=== PATIENT | female | born 1945 | race Caucasian/White ===

== ENCOUNTER → 2016-12-30 | Outpatient (CLI) | payer MEDICARE ==
--- NOTE | 2016-12-30 17:41 | PCVCIMAG ---
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, Obesity, Edema 2D Dimensions LVEF(%): 38.94 (>50%) IVSd: 14.32 (7-11mm)LVOT Diam: 20.89 (18-24mm) LVDd: 48.62 mm PWd: 12.19 (7-11mm) LVDs: 39.43 (25-40mm) Left Atrium: 44.06 (27-40mm) Aortic Root: 29.80 mm LV Single Plane 4CH: 50.59 % LV Single Plane 2CH: 47.61 %Ramos's LVEF: 49.10 % Biplane EF: 48.5 % Volumes Left Atrial Volume (Systole) Single Plane 4CH: 68.70 mLSingle Plane 2CH: 70.30 mL LA ESV Index: 34.00 mL/m2 Aortic Valve AoV Peak Lv.: 4.08 m/s LVOT Max P.03 mmHg AO Mean Gr.: 33.14 mmHgLVOT Mean P.14 mmHg AO V2 Mean: 2.65 m/sLVOT Max V: 1.23 m/s AO V2 VTI: 103.59 cmLVOT Mean V: 0.85 m/s SHARONDA (VTI): 1.20 [id number] V1 VTI: 30.14 cm SV (LVOT): 103.28 mL Mitral Valve E/A Ratio: 1.2 MV Decel. Time: 257.99 ms MV E Max Lv.: 1.16 m/s MV A Lv.: 0.96 m/s IVRT: 65.74 ms Pulmonary Valve PV Peak Lv.: 0.98 m/sPV Peak Gr.: 3.86 mmHg Pulmonary Vein P Vein S: 0.24 m/sP Vein A: 0.34 m/s P Vein D: 0.45 m/sP Vein A Dur.: 138.4 msec P Vein S/D Ratio: 0.53 Tricuspid Valve TR Peak Lv.: 2.33 m/s TR Peak Gr.: 21.80 mmHg Left Ventricle The left ventricle is normal size. There is normal LV segmental wall motion. Mild concentric left ventricular hypertrophy. Left ventricular systolic function is normal. LVEF is 50%. Grade II - pseudonormal filling dynamics. Right Ventricle The right ventricle is normal size. The right ventricular systolic function is normal. Atria Left atrium is mildly dilated. The right atrium size is normal. Aortic Valve Moderate aortic valve calcification. 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 Mild aortic regurgitation. There is moderate valvular aortic stenosis. Mitral Valve Mild mitral annular calcification. Mild mitral regurgitation. No evidence of mitral valve stenosis. Tricuspid Valve The tricuspid valve is normal in structure. Trace tricuspid regurgitation with PAP of 29 mmHg. Pulmonic Valve The pulmonary valve is normal in structure. There is no pulmonic valvular regurgitation. Great Vessels The aortic root is normal in size. IVC is normal in size and collapses with >50% inspiration Pericardium There is no pericardial effusion. <Conclusion> The left ventricle is normal size. Mild concentric left ventricular hypertrophy. Left ventricular systolic function is normal. Grade II - pseudonormal filling dynamics. The right ventricle is normal size. Left atrium is mildly dilated. Moderate aortic valve calcification. 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 There is moderate valvular aortic stenosis. Mild mitral regurgitation.
== END | disposition home or self-care (01) ==
LOC: PCVCIMAG 09:46
PROVIDERS: ATTEND Internal Medicine Cardiovascular Disease
DX: I08.3 Combined rheumatic disorders of mitral, aortic and tricuspid valves (principal); I48.91 Unspecified atrial fibrillation; I10 Essential (primary) hypertension; Z95.4 Presence of other heart-valve replacement
CPT/HCPCS: 93306

== ENCOUNTER → 2017-01-05 | Outpatient (CLI) | payer MEDICARE | END | disposition home or self-care (01) | LOC: PCVCCLINIC 14:58 | PROVIDERS: ATTEND Internal Medicine Cardiovascular Disease | DX: I48.91 Unspecified atrial fibrillation (principal); I10 Essential (primary) hypertension; I25.10 Atherosclerotic heart disease of native coronary artery without angina pectoris; J44.9 Chronic obstructive pulmonary disease, unspecified; E78.00 Pure hypercholesterolemia, unspecified; E11.9 Type 2 diabetes mellitus without complications; I35.0 Nonrheumatic aortic (valve) stenosis; I45.10 Unspecified right bundle-branch block; Z79.84 Long term (current) use of oral hypoglycemic drugs; Z95.2 Presence of prosthetic heart valve; Z88.0 Allergy status to penicillin; Z79.899 Other long term (current) drug therapy | CPT/HCPCS: 93005; G0463 ==

== ENCOUNTER → 2017-03-19 | Outpatient (CLI) | payer MEDICARE | END | disposition home or self-care (01) | LOC: PCVCCLINIC 14:24 | PROVIDERS: ATTEND Internal Medicine Cardiovascular Disease | DX: I48.91 Unspecified atrial fibrillation (principal); R60.9 Edema, unspecified; I50.32 Chronic diastolic (congestive) heart failure; R94.31 Abnormal electrocardiogram [ECG] [EKG]; Z95.2 Presence of prosthetic heart valve; Z79.82 Long term (current) use of aspirin; Z79.899 Other long term (current) drug therapy; Z87.891 Personal history of nicotine dependence | CPT/HCPCS: 93005; G0463 ==

== ENCOUNTER → 2017-04-09 | Outpatient (CLI) | payer MEDICARE ==
--- NOTE | 2017-04-09 13:04 | PCVCIMAG ---
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, pneumonia and effusion 2D Dimensions LVEF(%): 54.36 (>50%) IVSd: 13.25 (7-11mm)LVOT Diam: 25.48 (18-24mm) LVDd: 45.93 mm PWd: 12.70 (7-11mm) LVDs: 33.04 (25-40mm) Left Atrium: 44.61 (27-40mm) Aortic Root: 31.50 mm LV Single Plane 4CH: 55.58 % LV Single Plane 2CH: 60.57 %Ramos's LVEF: 58.08 % Biplane EF: 58.1 % Volumes Left Atrial Volume (Systole) Single Plane 4CH: 79.57 mLSingle Plane 2CH: 101.45 mL LA ESV Index: 43.00 mL/m2 Aortic Valve AoV Peak Lv.: 2.94 m/s AO Peak Gr.: 34.68 mmHgLVOT Max P.49 mmHg AO Mean Gr.: 16.67 mmHgLVOT Mean P.47 mmHg AO V2 Mean: 1.84 m/sLVOT Max V: 1.06 m/s AO V2 VTI: 64.19 cmLVOT Mean V: 0.76 m/s SHARONDA (VTI): 1.77 [id number] V1 VTI: 22.29 cm SHARONDA Vmax: 1.84 cm2 SV (LVOT): 113.63 mL Mitral Valve E/A Ratio: 1.4 MV Decel. Time: 224.33 ms MV E Max Lv.: 1.33 m/s MV A Lv.: 0.93 m/s IVRT: 69.20 ms Pulmonary Valve PV Peak Lv.: 1.16 m/sPV Peak Gr.: 5.42 mmHg Pulmonary Vein P Vein S: 0.56 m/sP Vein A: 0.28 m/s P Vein D: 0.51 m/sP Vein A Dur.: 114.2 msec P Vein S/D Ratio: 1.10 Tricuspid Valve TR Peak Lv.: 2.57 m/s TR Peak Gr.: 26.33 mmHg Left Ventricle The left ventricle is normal size. There is normal LV segmental wall motion. Mild concentric left ventricular hypertrophy. The left ventricular systolic function is normal. The left ventricular ejection fraction is within the normal range. LVEF is >55%. Grade II - pseudonormal filling dynamics. Right Ventricle The right ventricle is normal size. The right ventricular systolic function is normal. Atria Left atrium is moderately dilated. Right atrium is mildly dilated. 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 There is no aortic valvular stenosis. Calculated aortic valve area is 1.8 cm2 with maximum pressure gradient of 35 mmHg and mean pressure gradient of 17 mmHg. Mitral Valve The mitral valve is normal in structure. Trace mitral regurgitation. No evidence of mitral valve stenosis. Tricuspid Valve The tricuspid valve is normal in structure. Mild tricuspid regurgitation with PAP of 33 mmHg. Pulmonic Valve The pulmonary valve is normal in structure. There is no pulmonic valvular regurgitation. Great Vessels The aortic root is normal in size. IVC is normal in size and collapses with >50% inspiration Pericardium There is no pericardial effusion. <Conclusion> The left ventricle is normal size. Mild concentric left ventricular hypertrophy. The left ventricular systolic function is normal. The right ventricle is normal size. Left atrium is moderately dilated. Right atrium is mildly dilated. 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 Mild tricuspid regurgitation with PAP of 33 mmHg.
== END | disposition home or self-care (01) ==
LOC: PCVCIMAG 11:15
PROVIDERS: ATTEND Internal Medicine Cardiovascular Disease
DX: I07.1 Rheumatic tricuspid insufficiency (principal); I48.91 Unspecified atrial fibrillation; I10 Essential (primary) hypertension; J18.9 Pneumonia, unspecified organism; E11.9 Type 2 diabetes mellitus without complications; R06.00 Dyspnea, unspecified; Z95.2 Presence of prosthetic heart valve
CPT/HCPCS: 93306